=== PATIENT | male | born 1945 | race Caucasian/White ===

== ENCOUNTER 2021-10-24 13:39 | Emergency (ER) | payer OTHER ==
[~2021-10-24] VITALS: Ht 172.7 cm; Wt 95.3 kg
--- NOTE | 2021-10-24 14:00 | NUR ---
[id number], PER EMS. 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
--- NOTE | 2021-10-24 15:45 | NUR ---
CALLED [facility] FOR BLS TRANSFER BACK TO NURSING FACILITY. WILL CALL BACK FOR MD TO MD AND ABULANCE TRANSPORT ETA
--- NOTE | 2021-10-24 15:58 | NUR ---
NOEL CALLED BACK. S TRANSPORT ETA 1700. [facility].
--- NOTE | 2021-10-24 16:42 | NUR ---
REPORT GIVEN TO YOLANDA FOR MARIA TERESA
[2021-10-24 17:44] VITALS: BP 142/76
--- NOTE | 2021-10-24 17:49 | NUR ---
REPORT GIVEN TO TRANSPORT, PT BEING TRANSPORTED IN STABLE CONDITION
== END 2021-10-24 17:50 ==
LOC: ER 13:48
DX: S13.4XXA Sprain of ligaments of cervical spine, initial encounter (principal); S09.90XA Unspecified injury of head, initial encounter; F03.90 Unspecified dementia, unspecified severity, without behavioral disturbance, psychotic disturbance, mood disturbance, and anxiety; I10 Essential (primary) hypertension; F32.9 Major depressive disorder, single episode, unspecified; E78.5 Hyperlipidemia, unspecified; Z88.8 Allergy status to other drugs, medicaments and biological substances; W19.XXXA Unspecified fall, initial encounter; Y93.89 Activity, other specified; Y92.89 Other specified places as the place of occurrence of the external cause; Y99.8 Other external cause status
CPT/HCPCS: 70450-TC; 72125-TC